=== PATIENT | female | born 1975 | race Asian ===

== ENCOUNTER 2017-10-01 09:32 | Emergency (ER) | payer OTHER ==
[2017-10-01] MEDS: DIAZEPAM 5 MG/ML SYG IM (11:01)
[2017-10-01] MEDS: KETOROLAC 30 MG INJ IM (11:02)
[2017-10-01 12:34] LABS: ADD MAN DIFF? NO
[2017-10-01 12:35] LABS: BASOPHILS % 0.3 % (0.0-2.0); EOSINOPHILS % 0.3 % (0.0-7.0); HEMATOCRIT 41.1 % (37.0-47.0); HEMOGLOBIN 13.3 g/dl (12.0-16.0); LYMPHOCYTES # 1.3 10^3/ul (0.8-2.9); LYMPHOCYTES % 13.7 % (15.0-51.0); MEAN CORPUSCULAR HEMOGLOBIN 26.2 pg (29.0-33.0); MEAN CORPUSCULAR HGB CONC 32.4 g/dl (32.0-37.0); MEAN CORPUSCULAR VOLUME 81.1 fl (82.0-101.0); MEAN PLATELET VOLUME 9.7 fl (7.4-10.4); MONOCYTE # 0.4 10^3/ul (0.3-0.9); MONOCYTES % 3.8 % (0.0-11.0); NEUTROPHIL # 7.5 10^3/ul (1.6-7.5); NEUTROPHILS % 81.7 % (39.0-77.0); PLATELET COUNT 274 10^3/UL (140-415); RED BLOOD COUNT 5.07 10^6/ul (4.20-5.40); RED CELL DISTRIBUTION WIDTH 12.7 % (11.5-14.5)
[2017-10-01 12:35] LABS: WHITE BLOOD COUNT 9.1 10^3/ul (4.8-10.8)
[2017-10-01 12:56] LABS: ALANINE AMINOTRANSFERASE 26 IU/L (13-69); ALBUMIN/GLOBULIN RATIO 1.19; ALKALINE PHOSPHATASE 82 IU/L (42-121); ANION GAP 18 (8-16); ASPARTATE AMINO TRANSFERASE 24 IU/L (15-46); BILIRUBIN,INDIRECT 0.2 mg/dl (0-1.1); BILIRUBIN,TOTAL 0.2 mg/dl (0.2-1.3); BLOOD UREA NITROGEN 11 mg/dl (7-20); CALCIUM 9.9 mg/dl (8.4-10.2); CARBON DIOXIDE 27 mmol/L (21-31); CHLORIDE 103 mmol/L (97-110); GLUCOSE 97 mg/dl (70-220); POTASSIUM 4.3 mmol/L (3.5-5.1); SODIUM 144 mmol/L (135-144); TOTAL PROTEIN 9.2 g/dl (6.1-8.1)
[2017-10-01] MEDS: SOD CHLORIDE 0.9% 100 ML (13:33)
[2017-10-01] MEDS: IOHEXOL 300MG/ML 150 ML BTL (13:33)
[2017-10-01] MEDS: morphine 4 MG/ML VIAL IV (13:43)
== END 2017-10-01 14:59 | disposition home or self-care (01) ==
LOC: FTE 09:32
DX: M26.601 Right temporomandibular joint disorder, unspecified (principal); K11.8 Other diseases of salivary glands
CPT/HCPCS: 70110; 70491; 80053; 85025; 96372; 96374; 99285-25